=== PATIENT | male | born 1955 ===

== ENCOUNTER 2021-07-20 12:45 | Emergency (ER) | payer BC ==
[2021-07-20] MEDS: Sodium Chloride 0.9% 1,000 ML IV ONE (13:00)
[2021-07-20] MEDS: Ondansetron 4 MG/2 ML SDV IVPUSH ONE ×2 (13:05→15:50)
[2021-07-20] MEDS: Ketorolac 30 MG/ML SDV IVPUSH ONE (13:20)
[2021-07-20] MEDS: Metoclopramide 10 MG/2 ML SDV IV PRN (14:45)
[2021-07-20] MEDS: HYDROmorphone 2 MG/ML SDV IVPUSH ONE (14:45)
[2021-07-20] MEDS: HYDROmorphone 2 MG/ML SDV ONE (16:04)
[2021-07-20] MEDS: Metoclopramide 10 MG/2 ML SDV ONE (16:05)
[2021-07-20] MEDS: cefTRIAXone 1 GM Vial ONE (16:40)
[2021-07-20] MEDS: cefTRIAXone 1 GM Vial IM ONE (16:47)
--- NOTE | 2021-07-20 16:49 | EDM.PDOC ---
ED HPI GENERAL MEDICAL PROBLEM - General Chief Complaint: Gastrointestinal Problem Stated Complaint: NAUSEA/VOMITING Time Seen by Provider: 07/20/21 13:20 - History of Present Illness INITIAL COMMENTS - FREE TEXT/NARRATIVE: Pt comes to the ER with C/O nausea and vomiting for 2 days. He is not running a fever. No recent falls or injuries. [place] is [place] here on a [place] trip with a group. Nobody else is sick. He denies any chest pain, SOB, cough or wheezing. He tells me he had a CT of the Abd 1 week ago for other reasons, and it was nml. Bilateral Abdominal Pain Score (Numeric/FACES): 8 - Related Data Allergies Allergy/AdvReac Type Severity Reaction Status Date / Time No Known Allergies Allergy Verified 07/20/21 12:49 Past Medical History Cardiovascular History: Reports: High Cholesterol, Hypertension Gastrointestinal History: Reports: Other (See Below) Other Gastrointestinal History: abd pain Social & Family History - Recreational Drug Use Recreational Drug Use: No ED ROS GENERAL - Review of Systems Review Of Systems: Comprehensive ROS is negative, except as noted in HPI. GI/Abdominal: Reports: Abdominal Pain, Diarrhea, Nausea, Vomiting ED EXAM, GI/ABD - Physical Exam Exam: See Below (Male) Exam: Other (Abd pain of the lower Abd. bOWEL SOUNDS ARE ACTIVE.) #1 Interpretation EKG Date: 07/20/21 Time: 15:30 Rhythm: NSR (NSR today.) Course - Vital Signs Last Recorded V/S: Last Vital Signs Temp 98 F 07/20/21 13:12 Pulse 91 07/20/21 13:12 Resp 18 07/20/21 13:12 BP 173/93 H 07/20/21 13:12 Pulse Ox 96 07/20/21 13:12 - Orders/Labs/Meds Orders: Active Orders 24 hr Category Date Time Status Abdomen Pelvis wo Cont [CT] Stat Exams 07/20/21 14:53 Taken Metoclopramide [Reglan] Med 07/20/21 14:50 Active 10 mg IV Q4H PRN Medication Orders Metoclopramide HCl (Metoclopramide 10 Mg/2 Ml Sdv) 10 mg IV Q4H PRN PRN Reason: Nausea Last Admin: 07/20/21 14:45 Dose: 10 mg Documented by: CECY Labs: Laboratory Tests 07/20/21 07/20/2107/20/21 Range/Units 12:50 13:33 14:00 WBC 10.7 (4.0-11.0) K/uL RBC 4.43 L (4.50-6.50) M/uL Hgb 13.2 (13.0-18.0) g/dL Hct 38.1 L (40.0-54.0) % MCV 86 (76-96) fL MCH 29.8 (27.0-32.0) pg MCHC 34.6 (31.0-35.0) g/dL RDW 12.4 (11.0-16.0) % Plt Count 235 (150-400) K/uL MPV 10.2 H (6.0-10.0) fL Neut % (Auto) 88.8 H (45.0-70.0) % Lymph % (Auto) 6.3 L (20.0-40.0) % [place] % (Auto) 4.6 (3.0-10.0) % Eos % (Auto) 0.1 L (1.0-5.0) % Baso % (Auto) 0.2 (0.0-0.5) % Neut # (Auto) 9.52 H (2.00-7.50) K/uL Lymph # (Auto) 0.67 L (1.50-4.00) K/uL [place] # (Auto) 0.49 (0.20-0.80) K/uL Eos # (Auto) 0.01 L (0.04-0.40) K/uL Baso # (Auto) 0.02 (0.02-0.10) K/uL Sodium 136 (136-145) mmol/L Potassium 4.2 (3.5-5.1) mmol/L Chloride 100 (98-107) mmol/L Carbon Dioxide 23.2 (21.0-32.0) mmol/L Anion Gap 17.0 H (5.0-15.0) mmol/L BUN 20 (8-26) mg/dL Creatinine 1.04 (0.70-1.30) mg/dL Est Cr Clr Drug Dosing 74.09 mL/min Estimated GFR (MDRD) > 60 (>60) MLS/MIN BUN/Creatinine Ratio 19.2 (6-25) Glucose 172 H (74-100) mg/dL Calcium 9.6 (8.5-10.1) mg/dL Total Bilirubin 0.7 (0.0-1.0) mg/dL AST 26 (15-37) U/L ALT 31 (12-78) U/L Alkaline Phosphatase 59 (46-116) U/L Troponin I (0.000-0.060) ng/mL Total Protein 8.4 H (6.4-8.2) g/dL Albumin 4.5 (3.4-5.0) g/dL Globulin 3.9 (2.2-4.2) g/dL Albumin/Globulin Ratio 1.2 (0.8-2.0) Lipase (73-393) U/L SARS CoV-2 RNA Rapid [facility] Negative 07/20/21 07/20/21 Range/Units 14:00 14:00 WBC (4.0-11.0) K/uL RBC (4.50-6.50) M/uL Hgb (13.0-18.0) g/dL Hct (40.0-54.0) % MCV (76-96) fL MCH (27.0-32.0) pg MCHC (31.0-35.0) g/dL RDW (11.0-16.0) % Plt Count (150-400) K/uL MPV (6.0-10.0) fL Neut % (Auto) (45.0-70.0) % Lymph % (Auto) (20.0-40.0) % [place] % (Auto) (3.0-10.0) % Eos % (Auto) (1.0-5.0) % Baso % (Auto) (0.0-0.5) % Neut # (Auto) (2.00-7.50) K/uL Lymph # (Auto) (1.50-4.00) K/uL [place] # (Auto) (0.20-0.80) K/uL Eos # (Auto) (0.04-0.40) K/uL Baso # (Auto) (0.02-0.10) K/uL Sodium (136-145) mmol/L Potassium (3.5-5.1) mmol/L Chloride (98-107) mmol/L Carbon Dioxide (21.0-32.0) mmol/L Anion Gap (5.0-15.0) mmol/L BUN (8-26) mg/dL Creatinine (0.70-1.30) mg/dL Est Cr Clr Drug Dosing mL/min Estimated GFR (MDRD) (>60) MLS/MIN BUN/Creatinine Ratio (6-25) Glucose (74-100) mg/dL Calcium (8.5-10.1) mg/dL Total Bilirubin (0.0-1.0) mg/dL AST (15-37) U/L ALT (12-78) U/L Alkaline Phosphatase (46-116) U/L Troponin I < 0.017 (0.000-0.060) ng/mL Total Protein (6.4-8.2) g/dL Albumin (3.4-5.0) g/dL Globulin (2.2-4.2) g/dL Albumin/Globulin Ratio (0.8-2.0) Lipase 104 (73-393) U/L SARS CoV-2 RNA Rapid [facility] Meds: Medications Generic Name Dose Route Start Last Admin Trade Name Freq PRN Reason Stop Dose Admin Metoclopramide HCl 10 mg 07/20/21 14:50 07/20/21 14:45 Metoclopramide 10 Mg/2 Ml Sdv IV 10 mg Q4H PRN Administration Nausea Discontinued Medications Generic Name Dose Route Start Last Admin Trade Name Freq PRN Reason Stop Dose Admin Ceftriaxone Sodium Confirm 07/20/21 16:40 Ceftriaxone 1 Gm Vial Administered 07/20/21 16:41 Dose 1 gm .ROUTE .STK-MED ONE Ceftriaxone Sodium 1 gm 07/20/21 16:40 Ceftriaxone 1 Gm Vial IM 07/20/21 16:41 ONETIME ONE Hydromorphone HCl 0.5 mg 07/20/21 14:51 07/20/21 14:45 Hydromorphone 2 Mg/Ml Sdv IVPUSH 07/20/21 14:52 0.5 mg ONETIME ONE Administration Hydromorphone HCl Confirm 07/20/21 14:56 07/20/21 16:04 Hydromorphone 2 Mg/Ml Sdv Administered 07/20/21 14:57 Not Given Dose 2 mg .ROUTE .STK-MED ONE Sodium Chloride 1,000 mls @ 500 mls/hr 07/20/21 13:38 07/20/21 13:00 Normal Saline IV 07/20/21 15:37 500 mls/hr .BOLUS ONE Administration Ketorolac Tromethamine 30 mg 07/20/21 13:13 07/20/21 13:20 Ketorolac 30 Mg/Ml Sdv IVPUSH 07/20/21 13:14 30 mg ONETIME ONE Administration Metoclopramide HCl Confirm 07/20/21 14:54 07/20/21 16:05 Metoclopramide 10 Mg/2 Ml Sdv Administered 07/20/21 14:55 Not Given Dose 10 mg .ROUTE .STK-MED ONE Ondansetron HCl 4 mg 07/20/21 12:50 07/20/21 13:05 Ondansetron 4 Mg/2 Ml Sdv IVPUSH 07/20/21 12:51 4 mg ONETIME ONE Administration Ondansetron HCl 4 mg 07/20/21 13:41 07/20/21 15:50 Ondansetron 4 Mg/2 Ml Sdv IVPUSH 07/20/21 13:42 4 mg ONETIME ONE Administration - Re-Assessments/Exams Free Text/Narrative Re-Assessment/Exam: 07/20/21 16:47 He was given Toradol and Zofran initially. This did not seem to help, so he was given Reglan and Dilaudid. These meds worked better. He was given N.S. 1 liter. He will be discharged home with Ultram and Reglan. Labs show a left shift today. CT is negative for any acute changes. Due to the left shift I will give him Rocephin 1 Gram IM. Departure - Departure Time of Disposition: 16:50 Disposition: Home, Self-Care 01 Condition: Good Clinical Impression: Gastroenteritis - Discharge Information *PRESCRIPTION DRUG MONITORING PROGRAM REVIEWED*: Yes *COPY OF PRESCRIPTION DRUG MONITORING REPORT IN PATIENT KAM: Yes Referrals: PCP,None [Primary Care Provider] - Additional Instructions: Take meds as directed. Take fluids in small frequent amounts, advance as tolerated. [place] diet until condition resolves. Follow up as needed. Sepsis Event Note (ED) - Evaluation Sepsis Screening Result: No Definite Risk - Focused Exam Vital Signs: Vital Signs Temp Pulse Resp BP Pulse Ox 07/20/21 13:12 98 F 91 18 173/93 H 96 - My Orders Last 24 Hours: My Active Orders 07/20/21 14:50 Metoclopramide [Reglan] 10 mg IV Q4H PRN 07/20/21 14:53 Abdomen Pelvis wo Cont [CT] Stat - Assessment/Plan Last 24 Hours: My Active Orders 07/20/21 14:50 Metoclopramide [Reglan] 10 mg IV Q4H PRN 07/20/21 14:53 Abdomen Pelvis wo Cont [CT] Stat
--- NOTE | 2021-07-22 10:14 | CT ---
Date of Service: 07/20/21 Clinical Data: Abd pain - Nausea - vomiting for 2 days. UNENHANCED ABDOMEN AND PELVIC CT: Multislice acquisition through the abdomen and pelvis without IV or oral contrast was performed. No priors. The lung bases are clear. The heart size is normal. the unenhanced liver appears normal. No focal hepatic lesions. The gallbladder appears normal. No calcified gallstones. No pericholecystic fluid. The spleen appears normal. The pancreas appears normal. The right and left adrenals appear normal. The right and left kidneys appear normal. No nephrocalcinosis or nephrolithiasis. No hydronephrosis or hydroureter. The bladder is partially fluid filled. It appears normal. The prostate is mildly enlarged. The appendix is not dilated. No evidence of appendicitis. There is diverticulosis of the descending and sigmoid colon. No evidence of diverticulitis. No free air. No free fluid. No dilated loops of bowel. No aortic aneurysm. There is degenerative disk disease throughout the lower thoracic and lumbar spine. There is sclerosis of the right superior pubic ramus which is probably related to prior trauma. No other significant findings. [id number] [facility]
== END 2021-07-20 16:59 | disposition home or self-care (01) ==
LOC: LB.ED 12:45
DX: K52.9 Noninfective gastroenteritis and colitis, unspecified (principal); E78.00 Pure hypercholesterolemia, unspecified; I10 Essential (primary) hypertension; Z20.822 Contact with and (suspected) exposure to COVID-19
CPT/HCPCS: 36415; 74176; 80053; 83690; 84484; 85025; 87635; 93005; 96372; 96374; 96375; 96376; 99284; J0696; J1170; J1885; J2405; J2765; J7030; U0002